=== PATIENT | male | born 1965 ===

== ENCOUNTER 2020-05-12 18:00 | Outpatient (CLI) | payer BC, OTHER | END 2020-05-12 23:59 | disposition home or self-care (01) | LOC: LAB.R 18:00 | PROVIDERS: ATTEND Physician Assistant Medical | DX: R05 Cough (principal); J02.9 Acute pharyngitis, unspecified; Z20.828 Contact with and (suspected) exposure to other viral communicable diseases | CPT/HCPCS: 87070; 87275; 87276 ==

== ENCOUNTER 2024-01-21 08:42 | Emergency (ER) | payer BC ==
[2024-01-21 09:36] LABS: BILIRUBIN,URINE NEGATIVE (NEGATIVE); GLUCOSE, URINE (UA) NEGATIVE (NEGATIVE); KETONES,URINE (UA) NEGATIVE (NEGATIVE); LEUKOCYTE ESTERASE, URINE NEGATIVE (NEGATIVE); NITRITE,URINE NEGATIVE (NEGATIVE); OCCULT BLOOD,URINE TRACE-INTA (NEGATIVE); PROTEIN,URINE NEGATIVE (NEGATIVE); UROBILINOGEN,URINE 0.2 (NORMAL) E.U./dL (NORMAL)
[2024-01-21 09:37] LABS: CLARITY,URINE CLEAR (CLEAR)
--- NOTE | 2024-01-21 11:11 | ED Physician Documentation ---
PD HPI MALE - Stated complaint Stated Complaint: - Chief complaint Chief Complaint: Abd Pain - History obtained from History obtained from: Patient - History of Present Illness Timing - onset: Last night Timing - duration: Hours Timing - details: Abrupt onset, Still present Associated symptoms: Unable to urinate Similar symptoms before: Diagnosis (BPH) Recently seen: Not recently seen - Additional information Additional information: Tim Shelton is a 58-year-old male with a history of benign prostatic hypertrophy who was urinating last night and midstream was unable to urinate further. He has had increasing pain over the bladder area throughout the night and comes into the emergency department this morning with a 3 out of 10 pain. He states that he has had a weak stream and is on Flomax and has not had urinary retention previously. Review of Systems Constitutional: denies: Fever, Chills, Myalgias Ears: denies: Ear pain Nose: denies: Congestion Throat: denies: Sore throat Respiratory: denies: Cough GI: reports: Abdominal Pain, Nausea. denies: Vomiting, Constipation, Diarrhea : reports: Unable to Void PD PAST MEDICAL HISTORY - Past Medical History Past Medical History: Yes Cardiovascular: Hypertension Endocrine/Autoimmune: Type 2 diabetes : Benign prostate hypertrophy - Past Surgical History Past Surgical History: No - Present Medications Home Medications: Ambulatory Orders Medication Instructions Recorded Confirmed Tamsulosin HCl [Flomax] 0.4 mg PO DAILY 01/21/24 - Allergies Allergies/Adverse Reactions: Allergies Allergy/AdvReac Type Severity Reaction Status Date / Time No Known Drug Allergies Allergy Verified 01/21/24 09:02 - Social History Does the pt smoke?: No Smoking Status: Never smoker Does the pt drink ETOH?: No Does the pt have substance abuse?: No PD ED PE NORMAL - Vitals Vital signs reviewed: Yes (hypertension ) - General General: Alert and oriented X 3, No acute distress, Well developed/nourished - HEENT HEENT: Atraumatic, PERRL, EOMI - Neck Neck: Supple, no meningeal sign, No bony TTP - Cardiac Cardiac: RRR, No murmur - Respiratory Respiratory: No respiratory distress, Clear bilaterally - Abdomen Abdomen: Soft, Other (mild suprapubic tenderness) - Back Back: No CVA TTP, No spinal TTP - Derm Derm: Normal color, Warm and dry, No rash - Extremities Extremities: No deformity, No edema - Neuro Neuro: Alert and oriented X 3, director of convention services 2-12 intact, No motor deficit, No sensory deficit, Normal speech Eye Opening: Spontaneous Motor: Obeys Commands Verbal: Oriented GCS Score: 15 - Psych Psych: Normal mood, Normal affect Results - Vitals Vitals: Vital Signs - 24 hr 01/21/24 01/21/24 08:56 11:23 Temperature 36.4 C L Heart Rate 97 84 Respiratory 18 17 Rate Blood Pressure 172/86 H 169/96 H O2 Saturation 99 98 Oxygen O2 Source Room air - Labs Labs: Laboratory Tests 01/21/24 08:55 Urine Color YELLOW Urine Clarity CLEAR Urine pH 6.0 Ur Specific [place] 1.015 Urine Protein NEGATIVE Urine Glucose (UA) NEGATIVE Urine Ketones NEGATIVE Urine Occult Blood TRACE-INTA Urine Nitrite NEGATIVE Urine Bilirubin NEGATIVE Urine Urobilinogen 0.2 (NORMAL) Ur Leukocyte Esterase NEGATIVE Ur Microscopic Review NOT INDICATED Urine Culture Comments NOT INDICATED PD Medical Decision Making - ED course Complexity details: reviewed results, re-evaluated patient, considered differential, d/w patient, d/w family ED course: Tim Shelton is a 58-year-old male with a history of benign prostatic hypertrophy who presents to the emergency department unable to void since early in the morning. He ended up having to wait in the emergency department when his care was interrupted early and he was moved to another room. He was able to void in the bathroom and that room and following that he had a postvoid residual of [address] not place a Garcia catheter and we have given him instructions to follow-up with Dr. Jose Daniel Tobar and to return to the emergency department if he is unable to void. Departure - Departure Disposition: 01 Home, Self Care Clinical Impression: Benign prostatic hyperplasia (BPH) with straining on urination Instructions: ED Prostate Enlarged, ED Retention Urinary Male Follow-Up: Jose Daniel Tobar MD [Provider Admit Priv/Credential] - Comments: Tim, today looks like you were able to void and your postvoid residual was 316 mL. This indicates the need for a visit to the urologist. I have given you Dr. Jose Daniel Tobar's name and telephone number. My recommendation is to phone his office today for an appointment. You may end up having urinary retention before you are able to get into see Dr. Tobar and my recommendation is to come to the emergency department immediately if you develop this condition. This usually is an inability to urinate and mounting pain over the bladder, usually a catheter is needed to treat this. Today you were able to void and avoid this. Forms: PCP List Discharge Date/Time: 01/21/24 11:33
[2024-01-21 11:30] VITALS: BP 169/96; O2SAT 98
== END 2024-01-21 11:33 | disposition home or self-care (01) ==
LOC: ED 08:42
DX: N40.1 Benign prostatic hyperplasia with lower urinary tract symptoms (principal); I10 Essential (primary) hypertension; E11.9 Type 2 diabetes mellitus without complications
CPT/HCPCS: 81001; 81003; 87086; 99282; 99283

== ENCOUNTER 2024-01-24 15:42 | Outpatient (CLI) | payer BC ==
[2024-01-24] MEDS ORDERED: DIATRIZOATE MEGLU/DIATRIZO SOD 30 ML BOTTLE PO ONE (15:51)
[2024-01-24] MEDS ORDERED: iohexoL-300 100 ML VIAL ONE (15:51)
[2024-01-24] MEDS: iohexoL-300 100 ML VIAL IVP ONE (18:03)
[2024-01-24] MEDS: DIATRIZOATE MEGLU/DIATRIZO SOD 30 ML BOTTLE PO ONE (18:04)
--- NOTE | 2024-01-27 08:46 | CT Report ---
PROCEDURE: Abdomen/Pelvis W INDICATIONS: ABDOMINAL/FLANK PAIN CONTRAST: 100ml omni 300 TECHNIQUE: After the administration of intravenous contrast, a CT scan of the abdomen and pelvis was performed. Images were recorded and evaluated at appropriate window settings. Reformats: coronal and sagittal. F or radiation dose reduction, the following was used: automated exposure control, adjustment of mA and /or kV according to patient size. COMPARISON: None. FINDINGS: Image quality: Diagnostic. Lower chest: Unremarkable. Liver: No solid mass. Gallbladder: Cholelithiasis without wall thickening. Biliary tree: No intrahepatic or extrahepatic dilation, accounting for age. Spleen: No splenomegaly. Pancreas: No pancreatic ductal dilation. Adrenals: No adrenal nodule. Kidneys and ureters: No hydronephrosis. No renal cystic lesion which requires follow up. No solid mas s. Stomach, bowel and peritoneum: No gastric or small bowel dilation. No abnormal wall thickening. No pa thologic free fluid. Wall thickening of the sigmoid colon, with trace pericolonic fat stranding in th e presence of diverticula. Lymph nodes: No central or retroperitoneal adenopathy. Vessels: No infrarenal aortic aneurysm. Patent portal vein. PELVIS Reproductive organs: Unremarkable. Bladder: No abnormal wall thickening, accounting for underdistention. Pelvic lymph nodes: No pelvic adenopathy by size criteria. Bones: No aggressive osseous abnormality. Other: No significant ventral or inguinal hernia. IMPRESSION: Wall thickening of the sigmoid colon, with trace pericolonic fat stranding in the presence of diverti cula. Findings are suggestive of early or mild diverticulitis. No evidence of perforation. Reviewed by: Abraham Mercedes MD on 01/27/2024 8:44 AM PDT Approved by: Abraham Mercedes MD on 01/27/2024 8:44 AM PDT Station ID: [id number]
== END 2024-01-24 15:43 | disposition home or self-care (01) ==
LOC: DI 15:42
PROVIDERS: ATTEND Family Medicine
DX: R10.32 Left lower quadrant pain (principal); R33.9 Retention of urine, unspecified; K57.92 Diverticulitis of intestine, part unspecified, without perforation or abscess without bleeding
CPT/HCPCS: 74177; Q9963; Q9967

== ENCOUNTER 2024-01-26 10:59 | Emergency (ER) | payer BC ==
--- NOTE | 2024-01-26 11:57 | ED Physician Documentation ---
History of Present Illness - Stated complaint Stated Complaint: - Chief complaint Chief Complaint: General - Additonal information Additional information: Patient is a 58-year-old male presenting to the emergency department with urinary symptoms. Patient's symptoms have been going on for over a week now after he was seen here 3 days ago in the emergency department for difficulty urinating. Patient had postvoid residual bladder scan performed showing greater than 300 cc in his bladder. Patient was discharged home with diagnosis of BPH and told to follow-up with his PCP. Patient continues to have dribbling sensation and pressure in his bladder. He notes he has a urologist and was started on Flomax a few years ago for similar symptoms but has never had a chronic indwelling Garcia catheter. He denies any lower back pain no blood in his urine. He denies any fevers or chills. He notes on Saturday he had a CT scan of his abdomen pelvis to evaluate for possible urolithiasis. He notes he has not received the results of this at this time. PD PAST MEDICAL HISTORY - Past Medical History Cardiovascular: Hypertension Endocrine/Autoimmune: Type 2 diabetes : Benign prostate hypertrophy - Past Surgical History Past Surgical History: No - Present Medications Home Medications: Ambulatory Orders Medication Instructions Recorded Confirmed Tamsulosin HCl [Flomax] 0.4 mg PO DAILY 01/21/24 - Allergies Allergies/Adverse Reactions: Allergies Allergy/AdvReac Type Severity Reaction Status Date / Time No Known Drug Allergies Allergy Verified 01/26/24 11:08 - Social History Does the pt smoke?: No Smoking Status: Never smoker Does the pt drink ETOH?: No Does the pt have substance abuse?: No PD ED PE NORMAL - Vitals Vital signs reviewed: Yes - General General: Alert and oriented X 3 - HEENT HEENT: Atraumatic - Neck Neck: Supple, no meningeal sign - Cardiac Cardiac: RRR, No murmur, No gallop, No rub - Respiratory Respiratory: No respiratory distress, Clear bilaterally - Abdomen Abdomen: Other (Abdomen nondistended pressure to lower pelvis on examination. No CVA tenderness appreciated.) - Back Back: No CVA TTP - Derm Derm: Normal color, Warm and dry - Extremities Extremities: No deformity - Neuro Neuro: Alert and oriented X 3 Eye Opening: Spontaneous Motor: Obeys Commands Verbal: Oriented GCS Score: 15 - Psych Psych: Normal mood Results - Vitals Vitals: Vital Signs - 24 hr 01/26/24 01/26/24 11:08 14:57 Temperature 36.7 C Heart Rate 85 74 Respiratory 16 Rate Blood Pressure 152/82 H 150/76 H O2 Saturation 99 96 Oxygen O2 Source Room air - Labs Labs: Laboratory Tests 01/26/24 12:59 Urine Color YELLOW Urine Clarity CLEAR Urine pH 6.5 Ur Specific [place] 1.015 Urine Protein NEGATIVE Urine Glucose (UA) NEGATIVE Urine Ketones NEGATIVE Urine Occult Blood NEGATIVE Urine Nitrite NEGATIVE Urine Bilirubin NEGATIVE Urine Urobilinogen 0.2 (NORMAL) Ur Leukocyte Esterase NEGATIVE Ur Microscopic Review NOT INDICATED Urine Culture Comments NOT INDICATED PD Medical Decision Making - ED course Complexity details: reviewed old records, reviewed results ED course: Patient is a 58-year-old male presenting to the emergency department with urinary retention he was seen here 3 days ago for similar symptoms. Workup at that time showed PVR around 316. No Garcia catheter was placed at the time. Patient returned home continues to have pressure in his abdomen. He was not found to have a UTI on visit 3 days ago. Patient denies any fevers chills no burning with urination only dribbling. He denies any CVA tenderness. Bladder scan performed here in the emergency department shows over 500 cc in bladder. Attempted for Garcia catheter placed, however difficulty reported by nursing staff due to unable to advance Garcia catheter be on penile tip. Small 18 [place] catheter placed and patient had good return however this is not a permanent catheter. Second attempt for Garcia catheter placed here in the emergency department and patient tolerated this well. Leg bag applied and patient had over 500 cc of urine output. Patient feeling significantly better. He has an appointment with urology here on February 12. Patient instructed to follow-up with urology and to update them on his recent emergency department visit. He is instructed to return with any poor urine output pelvic pain/back pain fevers or chills. Departure - Departure Disposition: 01 Home, Self Care Clinical Impression: Acute urinary retention, Benign prostatic hyperplasia (BPH) with straining on urination Condition: Good Comments: You have a Garcia bag placed please follow-up with your urologist this week for reevaluation no concerning findings for UTI given clean urine 3 days ago. Monitor for any pressure in your abdomen and good urine output if this does not occur return to emergency department for these symptoms or any other new or wosening symptoms. Forms: PCP List
[2024-01-26] MEDS: LIDOCAINE 2% URO-JET 5 ML SYRINGE UR STA (12:27)
[2024-01-26 13:03] LABS: BILIRUBIN,URINE NEGATIVE (NEGATIVE); CLARITY,URINE CLEAR (CLEAR); GLUCOSE, URINE (UA) NEGATIVE (NEGATIVE); KETONES,URINE (UA) NEGATIVE (NEGATIVE); LEUKOCYTE ESTERASE, URINE NEGATIVE (NEGATIVE); NITRITE,URINE NEGATIVE (NEGATIVE); OCCULT BLOOD,URINE NEGATIVE (NEGATIVE); PH,URINE 6.5 PH (5.0-7.5); PROTEIN,URINE NEGATIVE (NEGATIVE); UROBILINOGEN,URINE 0.2 (NORMAL) E.U./dL (NORMAL)
[2024-01-26 14:58] VITALS: BP 150/76; O2SAT 96
== END 2024-01-26 15:27 | disposition home or self-care (01) ==
LOC: ED 10:59
DX: N40.1 Benign prostatic hyperplasia with lower urinary tract symptoms (principal); R33.8 Other retention of urine; R39.16 Straining to void; I10 Essential (primary) hypertension; E11.9 Type 2 diabetes mellitus without complications
CPT/HCPCS: 51702; 51798; 81001; 81003; 87086; 99283